=== PATIENT | female | born 1940 | race Hispanic/Latino ===

== ENCOUNTER 2018-07-07 12:09 | Outpatient (CLI) | payer MEDICARE ==
[2018-07-07 12:37] LABS: Basophils # (Auto) 0.1 K/mm3 (0.0-0.1); Basophils % (Auto) 0.9 % (0.0-1.8); Eosinophils % (Auto) 0.4 % (0.0-4.3); Hematocrit 40.8 % (30.3-42.9); Hemoglobin 13.4 gm/dl (10.1-14.3); Lymphocytes # (Auto) 0.8 K/mm3 (1.2-5.4); Lymphocytes % (Auto) 11.8 % (13.4-35.0); Mean Corpuscular HGB Conc 33 % (30-34); Mean Corpuscular Volume 96 fl (79-97); Monocytes # (Auto) 0.2 K/mm3 (0.0-0.8); Monocytes % (Auto) 3.5 % (0.0-7.3); Platelet Count 300 K/mm3 (140-440); Red Blood Count 4.24 M/mm3 (3.65-5.03); Red Cell Distribution Width 13.8 % (13.2-15.2)
[2018-07-07 13:12] LABS: Erythrocyte Sedimentation Rate 5 mm/Hr (0-20)
[2018-07-07 13:32] LABS: Chol/HDL Ratio 3.79 %
== END 2018-07-07 12:10 | disposition home or self-care (01) ==
LOC: LAB 12:09
PROVIDERS: ATTEND Psychiatry & Neurology Neurology
DX: Z13.220 Encounter for screening for lipoid disorders (principal); D46.9 Myelodysplastic syndrome, unspecified; E78.00 Pure hypercholesterolemia, unspecified; I10 Essential (primary) hypertension; K21.9 Gastro-esophageal reflux disease without esophagitis; M19.90 Unspecified osteoarthritis, unspecified site; Z87.891 Personal history of nicotine dependence
CPT/HCPCS: 36415; 80061; 85025; 85652